=== PATIENT | male | born 1940 | race Caucasian/White ===

== ENCOUNTER 2018-11-30 21:24 | Emergency (ER) | payer MEDICARE, MEDICAID ==
[~2018-11-30] VITALS: Ht 172.7 cm; Wt 113.4 kg
[2018-11-30] MEDS ORDERED: ELIQUIS5 MG PO (21:49)
[2018-11-30] MEDS ORDERED: ASPIR 8181 MG PO (21:49)
[2018-11-30] MEDS ORDERED: LIPITOR20 MG PO (21:49)
[2018-11-30] MEDS ORDERED: LOSARTAN POTASS50 MG PO (21:50)
[2018-11-30] MEDS ORDERED: MOBIC15 MG PO (21:50)
[2018-11-30] MEDS ORDERED: METFORMIN HCL1000 MG PO (21:50)
[2018-11-30] MEDS ORDERED: OMEPRAZOLE20 MG PO (21:51)
[2018-11-30] MEDS ORDERED: PROMETHAZINE HC25 M1 PO (21:51)
[2018-11-30] MEDS ORDERED: MECLIZINE HCL25 MG PO (21:51)
[2018-11-30] MEDS ORDERED: TRADJENTA5 MG PO (21:52)
[2018-11-30] MEDS ORDERED: ULTRAM50 MG PO (21:52)
[2018-11-30] MEDS ORDERED: FLOMAX0.4 MG PO (21:52)
--- OUTSIDE RECORDS SUMMARY | 2018-11-30 23:42 | XMS ---
PreManage Notification: DUY BECKER [employer] Events No recent Security Events currently on file CRITERIA MET - [facility] - 2 Visits in 30 Days CARE PROVIDERS There are no care providers on record at this time. Eliud has no Care Guidelines for this patient. Yuli VISIT COUNT (12 MO.) [address] [place] [id number] [address] [place] TOTAL 6 NOTE: Visits indicate total known visits. ED/C VISIT TRACKING (12 MO.) 11/30/2018 21:25 [facility] [place] TYPE: Emergency COMPLAINT: - POSS DIABETIC PROBLEM 11/16/2018 15:19 Madalyn [place] TYPE: Emergency DIAGNOSES: 0. EMS ABD PAIN 07/10/2018 19:09 [facility] ID TYPE: Emergency DIAGNOSES: - [facility] (current) use of insulin - Nausea with vomiting, unspecified - Dizziness and giddiness - Abdominal Pain - Acidosis - Type 2 diabetes mellitus without complications - Emesis - Hypokalemia 03/11/2018 11:29 [facility] ID TYPE: Emergency DIAGNOSES: - Emesis - Loss of Consciousness - Dizziness - Syncopal - Dizziness and giddiness - Syncope and collapse - Other pulmonary embolism without acute cor pulmonale 01/31/2018 10:23 [facility] ID TYPE: Emergency DIAGNOSES: - Weakness, N/V - Dizziness and giddiness - Nausea with vomiting, unspecified - Hyperglycemia, unspecified - Emesis - Fatigue - Nausea 01/26/2018 11:24 [facility] ID TYPE: Emergency DIAGNOSES: - Loss of Consciousness - Gastroparesis - Emesis - syncopal episode, emesis - Nausea INPATIENT VISIT TRACKING (12 MO.) 03/11/2018 11:29 [facility] ID TYPE: Multiple Services COMPLAINT: - LOSS OF CONSCIOUSNESS DIAGNOSES: - Syncope and collapse - Other pulmonary embolism without acute cor pulmonale [email or web address]
== END 2018-11-30 22:54 | disposition home or self-care (01) ==
LOC: ED 21:24
DX: R42 Dizziness and giddiness (principal); I10 Essential (primary) hypertension; E11.9 Type 2 diabetes mellitus without complications; Z90.49 Acquired absence of other specified parts of digestive tract; Z79.899 Other long term (current) drug therapy; Z79.82 Long term (current) use of aspirin; Z88.8 Allergy status to other drugs, medicaments and biological substances; Z79.84 Long term (current) use of oral hypoglycemic drugs
CPT/HCPCS: 81001; 99284